=== PATIENT | male | born 1985 ===

== ENCOUNTER 2017-06-11 01:22 | Emergency (ER) | payer OTHER ==
[2017-06-11 01:43] VITALS: RESP 18; TEMP 97.3
[2017-06-11] MEDS ORDERED: CIPROFLOXACIN HCL 500 MG TAB PO ONE (02:10)
[2017-06-11] MEDS: CIPROFLOXACIN HCL 500 MG TAB PO SCH (02:14)
[2017-06-11 02:21] VITALS: BP 126/83; PULSE 65; O2SAT 99
== END 2017-06-11 02:23 | disposition home or self-care (01) | DRG 153 ==
LOC: ED 01:22
DX: J01.10 Acute frontal sinusitis, unspecified (principal)
CPT/HCPCS: 87430; 99283